=== PATIENT | male | born 1965 | race Two or more races ===

== ENCOUNTER 2025-01-16 17:58 | Emergency (ER) | payer MEDICAID, SELFPAY ==
--- NOTE | 2025-01-16 18:25 | EKG_ITS ---
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
[2025-01-16 18:48] VITALS: BP 130/81; PULSE 102; RESP 16; TEMP 36.9; O2SAT 97; BMI 33.2
--- NOTE | 2025-01-16 19:04 | XR_ITS ---
EXAMINATION: PA chest single view TECHNIQUE: Upright PA chest single view Date and time: January 16, 2025 1911 hours INDICATIONS: Shortness of breath today. FINDINGS: Normal heart size. Lungs are clear. The osseous gabriel are intact IMPRESSION: No active disease
--- NOTE | 2025-01-16 19:05 | PD.EDCHEST ---
ED Chest Pain RME/HPI General Chief Complaint: Chest Pain Stated Complaint: CHEST PAIN X 2 DAYS Time Seen by Provider: 01/16/25 19:04 Arrival date/time: 01/16/25 17:58 59M with history of HTN and DM presents to ED with 2 days of CP, SOB, and anxiety. Patient denies URI symptoms and drug/alcohol use. Limitations: no limitations Related Data Home Medications ?Medication ?Instructions ?Recorded ?Confirmed glimepiride 2 mg tablet 2 mg PO QDAY 12/04/18 12/04/18 lisinopril 10 mg tablet 10 mg PO QDAY 12/04/18 12/04/18 metformin 1,000 mg tablet 1,000 mg PO BID 12/04/18 12/04/18 omeprazole 20 mg tablet,delayed 20 mg PO BID 12/04/18 12/04/18 release ranitidine HCl 150 mg tablet 150 mg PO BID 12/04/18 12/04/18 sitagliptin phosphate 100 mg 100 mg PO QDAY 12/04/18 12/04/18 tablet (Januvia) tramadol 50 mg tablet 100 mg PO QID 12/04/18 12/04/18 Previous Rx's ?Medication ?Instructions ?Recorded hydrocodone 5 mg-acetaminophen 325 1 tab PO Q4H PRN pain #20 tabs 12/05/18 mg tablet Allergies Allergy/AdvReac Type Severity Reaction Status Date / Time No Known Allergies Allergy Verified 01/16/25 18:02 Review of Systems Review of Systems Systems Reviewed: All systems reviewed, normal except as documented Cardiovascular Cardiovascular: Reports as per HPI, Reports chest pain and Reports dyspnea Respiratory Respiratory: Reports dyspnea Past Medical History Past Medical History NEUROLOGIC: Negative Seizures CARDIAC: Positive Hypertension; Negative Congestive Heart Failure RESPIRATORY: Negative Chronic Obstructive Pulmonary Disease (COPD) GENITOURINARY: Negative Renal Disease ENDOCRINE: Positive Diabetes Mellitus Type 2; Negative Diabetes Mellitus Type 1 OTHER HISTORY: Negative Blood Transfusions or Anesthesia Reactions Social History SMOKING STATUS: Never smoker SUBSTANCE USE: does not use ED Exam General Limitations: Present no limitations General appearance: Present alert, in no apparent distress and anxious Head Head exam: Present atraumatic Neck Neck exam: Present normal inspection, full ROM and trachea midline Chest Chest inspection: Present normal inspection and symmetric chest wall rise Respiratory Respiratory exam: Present normal lung sounds bilaterally Cardiovascular Cardiovascular exam: Present regular rate, normal rhythm and normal heart sounds Neurological Exam Neurological exam: Present alert and oriented X3 Psychiatric Psychiatric exam: Present normal affect and anxious Skin Skin exam: Present warm, dry, intact and normal color Course Quality Measures none Orders Category Date Time Status EKG (ED ONLY) *Do not use* NOW Care 01/16/25 18:25 Completed EKG (ED Only) Stat Exams 01/16/25 18:25 Draft XR chest 1V portable Stat Exams 01/16/25 19:04 Completed B-Type Natriuretic Peptide Stat Lab 01/16/25 19:23 Completed CBC Stat Lab 01/16/25 19:23 Completed Comprehensive Metabolic Panel Stat Lab 01/16/25 19:23 Completed D-Dimer Stat Lab 01/16/25 19:23 Completed Drug Screen,Urine Stat Lab 01/16/25 19:26 Completed Troponin I Stat Lab 01/16/25 19:23 Completed Troponin I Stat Lab 01/16/25 22:23 Completed Urinalysis, C/S if Indicated Stat Lab 01/16/25 19:26 Completed Vital Signs Vital signs: Vital Signs Temperature 98.5 F 01/16/25 18:48 Pulse Rate 102 H 01/16/25 18:48 Respiratory Rate 16 01/16/25 18:48 Blood Pressure 130/81 01/16/25 18:48 Pulse Oximetry (%) 97 01/16/25 18:48 Oxygen Delivery Method Room Air 01/16/25 18:48 O2 at 97% on RA and WNLs Chest Pain MDM Narrative MDM Narrative:: 59M with history of HTN and DM presents to ED with 2 days of CP, SOB, and anxiety. Patient denies URI symptoms and drug/alcohol use. Physical exam reveals clear lungs and normal WOB. RRR. Patient is afebrile, alert, but anxious. EKG is NSR. CXR unremarkable. Normal trop (2x), D-dimer and BNP. Mild leukocytosis. Tox screen neg. CMP unremarkable. Store Protection Specialist given. Patient data External records reviewed:: [facility] previous records Clinical information provided by:: patient Social determinants that could affect healthcare access:: none Patient has the following chronic illnesses:: HTN and DM How is presenting disease/condition affected by chronic disease/condition?: exacerbated by Evaluation data The following diagnostics were reviewed and interpreted by me:: lab results, radiology exam(s) and EKG tracing(s) Lab and/or radiology exams considered but not ordered:: ordered Interpretation Summary: above Medications / Prescriptions Medications or Prescriptions considered but not ordered:: not ordered Medication administrations:: n/a Consultations Consultation(s) initiated? (list below): No Diagnosis Chest Pain Differential Diagnosis: fracture of rib, pneumothorax, stable angina, unstable angina pectoris, atypical chest pain, st elevation myocardial infarction, costochondritis, chest pain and biliary colic Most likely diagnosis given after review of the tests above:: atypical chest pain Admission Indicated Admission indicated?: not indicated Admission Request Was there a request for admission?: No Disposition Plan Disposition Plan: Discharge Discharge Attestation Discharge Attestation: The patient and all family members were given an opportunity to ask questions and understood the discharge instructions. Discharge instructions specifically effects, indications for sooner follow up or return to the emergency department, and the expected course of current diagnosis. Patient condition: Stable Discharge Plan Plan Patient Disposition: HOME (Self Care) Discharge Disposition comment: Stable Prescriptions/Referrals Prescriptions/Med Rec: No Action tramadol 50 mg tablet 100 mg PO QID Patient Comments: patient only takes 2t po qday glimepiride 2 mg tablet 2 mg PO QDAY Patient Comments: IF PATIENT TAKES MEDICATION EVERY DAY IT LOWERS HIS SUGAR TO MUCH SO HE ONLY TAKES IT PRN metformin 1,000 mg tablet 1,000 mg PO BID Patient Comments: TOME 1 TABLETA POR LA BOCA 2 VECES DIARIO PARA DIABETES ranitidine HCl 150 mg tablet 150 mg PO BID Patient Comments: patient only takes 1t po day lisinopril 10 mg tablet 10 mg PO QDAY Patient Comments: TOME 1 TABLETA POR LA BOCA DIARIO PARA MACRINA PRESION Januvia 100 mg tablet 100 mg PO QDAY Patient Comments: TOME 1 TABLETA POR LA BOCA DIARIO PARA DIABETES omeprazole 20 mg tablet,delayed release (DR/EC) 20 mg PO BID Patient Comments: TOME FROY TABLETA POR V?A ORAL A DIARIO hydrocodone-acetaminophen 5-325 mg tablet 1 tab PO Q4H MDD 6 tablets per day PRN (Reason: pain) Qty: 20 0RF Rx Instructions: take with food for pain Referrals: Zenaida Hermosillo PA-C [Primary Care Provider, Family Practice] - In 1 week Problem List Clinical Impression: Atypical chest pain Patient/Caregiver Discharge Instructions Education Materials: ED Chest Pain, Uncertain Cause Additional Instructions: Please follow-up with PCP within 24-48 hours and return immediately if symptoms worsen. Print Language: Tamazight Stand Alone Forms: Patient Portal Info Letter PA/RETAIL LEADER Supervising Physician PA/RETAIL LEADER Supervising Physician: Dr. Donato
[2025-01-16 19:44] LABS: Collection Type, Urine Clean Catch
[2025-01-16 19:59] LABS: Basophils # (Auto) 0.1 Thou/mm3 (0.0-0.2); Basophils % (Auto) 1 % (0-2.5); Eosinophils # (Auto) 0.0 Thou/mm3 (0.0-0.5); Eosinophils % (Auto) 0 % (0-10); Hematocrit 45.4 % (41.0-53.0); Hemoglobin 14.9 g/dL (13.5-16.0); Immature Granulocytes Auto 0.08 Thou/mm3 (0.00-0.00); Lymphocytes # (Auto) 2.7 Thou/mm3 (1.0-4.8); Lymphocytes % (Auto) 19 % (10-50); Mean Corpuscular HGB Conc 32.8 g/dl (31.0-37.0); Mean Corpuscular Hemoglobin 26.0 pg (25.0-35.0); Mean Corpuscular Volume 79 fL (80-100); Monocytes # (Auto) 0.9 Thou/mm3 (0.0-0.8); Monocytes % (Auto) 6 % (0-12); Neutrophils # (Auto) 10.7 Thou/mm3 (1.8-7.7); Neutrophils % (Auto) 74 % (37-80); Nucleated Red Blood Cell # 0.00 Thou/mm3 (0.00-0.00); Nucleated Red Blood Cell % 0 /100 WBC (0); Platelet Count 325 Thou/mm3 (140-440); RDW Standard Deviation 42.6 fL (35.1-43.9); Red Blood Count 5.74 Miln/mm3 (4.50-5.90); White Blood Count 14.4 Thou/mm3 (3.8-10.6)
[2025-01-16 20:04] LABS: B-Type Natriuretic Peptide < 20 pg/mL (0-100)
[2025-01-16 20:05] LABS: Alanine Aminotransferase 17 U/L (10-49); Albumin, Serum 5.5 gm/dL (3.5-5.0); Albumin/Globulin Ratio 1.7 (1.2-2.2); Alkaline Phosphatase 62 U/L (46-116); Anion Gap 9 (7-16); Aspartate Amino Transferase 15 U/L (0-34); BUN/Creatinine Ratio 7 Ratio (12-20); Bilirubin,Total 0.7 mg/dL (0.3-1.2); Blood Urea Nitrogen 6 mg/dL (9-23); Calcium 10.3 mg/dL (8.3-10.6); Calcium (Corrected) 10.3 mg/dL (8.5-10.1); Carbon Dioxide 26.7 mMol/L (20.0-31.0); Chloride 100 mMol/L (98-107); Creatinine (Component) 0.9 mg/dL (0.6-1.3); Estimated Creatinine Clearance 100.1 mL/min (>60); Globulin 3.2 gm/dL (2.3-3.5); Glucose 121 mg/dL (74-106); Osmolality,Calculated 270 (275-295); Potassium 4.1 mMol/L (3.4-5.1); Sodium 136 mMol/L (136-145); Total Protein 8.7 gm/dL (5.7-8.2); Troponin I < 0.002 ng/mL (0.0-0.045); eGFR > 60 See Note
[2025-01-16 20:07] LABS: Amorphous Crystals,Urine Present (Absent); Bilirubin,Urine Negative (Negative); Blood,Urine Negative (Negative); Clarity,Urine Clear (Clear/Hazy); Color,Urine Lt-Yellow (Lt Yel-Yel); Culture Indicated,Urine Not Indicated; Glucose, Urine 4+ (Negative); Ketones,Urine 1+ (Negative); Leukocyte Esterase,Urine Negative (Negative); Nitrite,Urine Negative (Negative); PH,Urine 6.5 (5.0-7.0); Protein,Urine Negative (Neg - Trace); RBC,Urine 1 /hpf (0-3); Specific Gravity,Urine 1.035 (1.001-1.035); Squamous Epithelial Cell,Urine < 1 /hpf (0-5); Urobilinogen,Urine Negative mg/dL (0.0-1.0); WBC,Urine 1 /hpf (0-5)
[2025-01-16 20:09] LABS: Amphetamine/Methamp Scrn,U Negative (Negative); Barbiturate Screen,Urine Negative (Negative); Benzodiazepines Screen,Urine Negative (Negative); Benzoylecgonine Screen, Ur Negative (Negative); Fentanyl Screen,Urine Negative (Negative); Opiate Screen,Urine Negative (Negative); THC Screen,Urine Negative (Negative)
[2025-01-16 20:18] LABS: D-Dimer < 250 ng/mL (<600)
[2025-01-16 21:59] VITALS: BP 118/60; PULSE 89; RESP 19; TEMP 36.9; O2SAT 97
[2025-01-16 23:02] LABS: Troponin I < 0.002 ng/mL (0.0-0.045)
== END 2025-01-16 23:21 | disposition home or self-care (01) ==
PROVIDERS: Physician Assistant; Emergency Provider Emergency Medicine; PCP Physician Assistant
DX: R07.9 Chest pain, unspecified (principal); E11.9 Type 2 diabetes mellitus without complications
CPT/HCPCS: 36415; 71045; 80053; 80307; 81001; 83880; 84484; 85025; 85379; 93005; 99283